=== PATIENT | female | born 1960 | race Caucasian/White ===

== ENCOUNTER → 2017-05-01 | Outpatient (CLI) | payer MEDICAID ==
[~2017-05-01] MED LIST: ALPR1TAB2 PO; BACL10TA PO; BUDE10.22 IH; CETI10TA17 PO; CYCL10TA9 PO; DIVA500T PO; DIVA500T15 PO; DOCU100C37 PO; GABA-488 PO; HYDR-3816 PO; IBUP-1773 PO; MAG30ORA2 PO; MMT17NA NS; MONT10TA24 PO; ONDA-43 PO; ONDA4TAB8 PO; PRAZ2CAP2 PO; RT-ALBUINH IH; RT-COMBINH; SIME80TA16 PO; TRAM50TA2 PO
== END ==
LOC: PREOP 05:49
PROVIDERS: ATTEND Surgery
DX: Z01.818 Encounter for other preprocedural examination (principal); Z12.11 Encounter for screening for malignant neoplasm of colon